=== PATIENT | male | born 1985 | race Caucasian/White ===

== ENCOUNTER 2020-05-21 01:39 | Emergency (ER) | payer OTHER ==
[2020-05-21 01:45] VITALS: BP 149/95; TEMP 98.7; BMI 30.5
[2020-05-21] MEDS ORDERED: ACETAMINOPHEN 325 MG TABLET (FP) PO ONE (01:45)
[2020-05-21] MEDS ORDERED: ACETAMINOPHEN 325 MG TABLET (FP) ONE (01:46)
[2020-05-21 01:54] VITALS: PULSE 93
== END 2020-05-21 01:57 | disposition home or self-care (01) ==
LOC: FER 01:39
DX: S46.912A Strain of unspecified muscle, fascia and tendon at shoulder and upper arm level, left arm, initial encounter (principal)
CPT/HCPCS: 99283-25

== ENCOUNTER 2021-01-18 05:02 | Emergency (ER) | payer OTHER ==
[2021-01-18 05:09] VITALS: BP 133/92; PULSE 79; TEMP 98.3; BMI 30.5
[2021-01-18] MEDS ORDERED: KETOROLAC TROMETHAMINE 15 MG/ML VIAL IM ONE (05:34)
[2021-01-18] MEDS ORDERED: METHOCARBAMOL 750 MG TABLET PO ONE (05:34)
[2021-01-18] MEDS ORDERED: METHOCARBAMOL 500 MG TABLET ONE (05:41)
[2021-01-18] MEDS ORDERED: KETOROLAC TROMETHAMINE 30 MG/1 ML VIAL ONE (05:42)
== END 2021-01-18 06:30 | disposition home or self-care (01) ==
LOC: FER 05:02
PROC: 3E023GC Introduction of Other Therapeutic Substance into Muscle, Percutaneous Approach (ICD-10-PCS; principal; 2021-01-18)
DX: M54.2 Cervicalgia (principal); M25.561 Pain in right knee; V49.40XA Driver injured in collision with unspecified motor vehicles in traffic accident, initial encounter
CPT/HCPCS: 73562-TC-RT-FY; 99284-25

== ENCOUNTER 2023-01-31 20:37 | Emergency (ER) | payer OTHER ==
[2023-01-31 21:23] VITALS: BP 128/85; PULSE 88; RESP 16; TEMP 98.4; BMI 31.7
[2023-01-31] MEDS ORDERED: IBUPROFEN 400 MG TABLET (FP) PO ONE ×2 (22:12→22:14)
== END 2023-01-31 22:28 | disposition home or self-care (01) ==
LOC: FER 20:37
DX: S39.012A Strain of muscle, fascia and tendon of lower back, initial encounter (principal); S83.91XA Sprain of unspecified site of right knee, initial encounter; X50.1XXA Overexertion from prolonged static or awkward postures, initial encounter
CPT/HCPCS: 99283-25

== ENCOUNTER 2024-01-23 10:38 | Emergency (ER) | payer BC, OTHER ==
[2024-01-23 10:43] VITALS: BP 123/87; PULSE 75; RESP 18; TEMP 98.2; BMI 31.7
[2024-01-23] MEDS ORDERED: IBUPROFEN 400 MG TABLET (FP) PO ONE (10:50)
[2024-01-23] MEDS ORDERED: ACETAMINOPHEN 500 MG TABLET (FP) ONE (10:50)
[2024-01-23] MEDS: IBUPROFEN 400 MG TABLET (FP) PO ONE (10:52)
[2024-01-23] MEDS: ACETAMINOPHEN 500 MG TABLET (FP) PO ONE (10:52)
== END 2024-01-23 11:13 | disposition home or self-care (01) ==
LOC: FER 10:38
DX: S46.212A Strain of muscle, fascia and tendon of other parts of biceps, left arm, initial encounter (principal); X50.0XXA Overexertion from strenuous movement or load, initial encounter
CPT/HCPCS: 99283-25

== ENCOUNTER 2024-01-31 04:08 | Emergency (ER) | payer OTHER, BC ==
[2024-01-31 04:15] VITALS: BP 141/96; PULSE 116; RESP 18; TEMP 98.6; BMI 31.7
[2024-01-31] MEDS ORDERED: IBUPROFEN 600 MG TABLET (FP) PO ONE (04:26)
== END 2024-01-31 04:36 | disposition home or self-care (01) ==
LOC: FER 04:08
DX: S46.212A Strain of muscle, fascia and tendon of other parts of biceps, left arm, initial encounter (principal); X50.0XXA Overexertion from strenuous movement or load, initial encounter
CPT/HCPCS: 99282-25

== ENCOUNTER 2024-02-11 09:28 | Day surgery (SDC) | payer OTHER ==
[2024-02-08 14:52] VITALS: BMI 31.7
[2024-02-11] MEDS ORDERED: PROPOFOL 40 ML ONE (12:07)
[2024-02-11] MEDS ORDERED: BUPIVACAINE HCL/PF 2.5 MG/ML - 30 ML VIAL IJ ONE (12:08)
[2024-02-11] MEDS ORDERED: MIDAZOLAM HCL 2 MG/2 ML SINGLE DOSE VIAL ONE (13:05)
[2024-02-11] MEDS ORDERED: oxyCODONE HCL 5 MG TABLET PO PRN (13:09)
[2024-02-11] MEDS ORDERED: ONDANSETRON 4 MG/2 ML VIAL IVPUSH PRN (13:09)
[2024-02-11] MEDS ORDERED: LACTATED RINGERS SOLUTION 1,000 ML IV SCH (13:15)
[2024-02-11] MEDS ORDERED: SEVOFLURANE 250 ML BTL ONE (14:56)
[2024-02-11] MEDS ORDERED: DEXAMETHASONE SOD PHOSPHATE 4 MG/1 ML VIAL ONE (14:57)
[2024-02-11] MEDS ORDERED: ONDANSETRON 4 MG/2 ML VIAL ONE (14:57)
[2024-02-11] MEDS ORDERED: ACETAMINOPHEN INJECTION 100 ML ONE (15:23)
[2024-02-11] MEDS: ACETAMINOPHEN 1000 MG/100 ML BAG IVPB ONE (15:25)
[2024-02-11] MEDS ORDERED: FENTANYL CITRATE/PF 50 MCG/ML VIAL ONE ×3 (15:33→16:00)
[2024-02-11] MEDS ORDERED: oxyCODONE HCL 5 MG TABLET ONE (16:00)
[2024-02-11] MEDS: oxyCODONE HCL 5 MG TABLET PO PRN (16:08)
[2024-02-11 17:06] VITALS: BP 116/66; PULSE 76; RESP 16; TEMP 98
== END 2024-02-11 17:05 | disposition home or self-care (01) ==
LOC: FASU 09:28
PROVIDERS: ATTEND Orthopaedic Surgery Sports Medicine
PROC: 0LM20ZZ Reattachment of Left Shoulder Tendon, Open Approach (ICD-10-PCS; principal; 2024-02-11 13:48)
DX: S46.212A Strain of muscle, fascia and tendon of other parts of biceps, left arm, initial encounter (principal); X58.XXXA Exposure to other specified factors, initial encounter; Y93.9 Activity, unspecified; Y92.9 Unspecified place or not applicable
CPT/HCPCS: 73090-TC-LT-FY; 94760; C1713; J0131